=== PATIENT | female | born 1995 | race Caucasian/White ===

== ENCOUNTER 2018-12-28 13:29 | Emergency (ER) | payer OTHER, BC ==
[~2018-12-28] VITALS: Ht 162.6 cm; Wt 160.0 kg
[2018-12-28 13:31] VITALS: BP 118/68
[2018-12-28] MEDS ORDERED: INSUHUMDS SC (13:40)
[2018-12-28] MEDS ORDERED: GABA-845 PO (13:40)
--- NOTE | 2018-12-28 14:44 | REP ---
LEFT FINGERS, FOUR VIEWS: HISTORY: Injury. There is no acute fracture or dislocation. The joint spaces are normal in appearance. IMPRESSION: There is no acute fracture or dislocation. Electronically Signed by Scott Pierre MD 12/28/2018 02:49 P
[2018-12-28] MEDS ORDERED: NEOSPORIN OINT 0.9 GM PKT (FLOOR STOCK) TOP ONE (14:45)
== END 2018-12-28 14:48 | disposition home or self-care (01) ==
LOC: M ED 13:29
DX: S61.211A Laceration without foreign body of left index finger without damage to nail, initial encounter (principal); W23.0XXA Caught, crushed, jammed, or pinched between moving objects, initial encounter; Y92.810 Car as the place of occurrence of the external cause; Z79.899 Other long term (current) drug therapy

== ENCOUNTER → 2021-11-04 | Outpatient (REF) ==
[~2021-11-04] MED LIST: GABA-283 PO; INSUHUMDS SC
[2021-11-18 14:29] LABS: CREATININE, URINE 60.5 MG/DL; MALB URINE SIEMENS 28.6 MG/L; MAU/CREAT RATIO 47.2 MCG/MG (0.0-30.0)
== END ==
LOC: M LABCFH 13:50
PROVIDERS: ATTEND Physician Assistant
DX: E10.65 Type 1 diabetes mellitus with hyperglycemia (principal); N92.6 Irregular menstruation, unspecified; Z32.01 Encounter for pregnancy test, result positive